=== PATIENT | female | born 1990 | race Caucasian/White ===

== ENCOUNTER 2019-10-31 12:36 | Emergency (ER) | payer OTHER ==
[~2019-10-31] VITALS: Ht 162.6 cm; Wt 49.4 kg
[2019-10-31 12:41] VITALS: BP 120/64
--- NOTE | 2019-10-31 13:05 | NUR ---
DR GRIFFITHS AT BEDSIDE FOR EVAL.
--- NOTE | 2019-10-31 13:48 | NUR ---
PT. VERBALIZED UNDERSTANDING OF AFTERCARE INSTRUCTIONS.Patient discharged to home in stable condition. Written and verbal after care instructions given. Patient verbalizes understanding of instruction.
== END 2019-10-31 13:49 | disposition home or self-care (01) ==
LOC: ER 12:36
DX: H00.033 Abscess of eyelid right eye, unspecified eyelid (principal)

== ENCOUNTER 2019-11-10 13:03 | Emergency (ER) | payer OTHER ==
[~2019-11-10] VITALS: Ht 162.6 cm; Wt 48.5 kg
--- NOTE | 2019-11-10 13:37 | NUR ---
DR GRIFFITHS AT BEDSIDE FOR EVAL.
[2019-11-10 13:53] LABS: BASOPHILS % (AUTO) 0.9 % (0.0-2.0); EOSINOPHILS % (AUTO) 0.7 % (0.0-6.0); HEMATOCRIT 38 % (33-45); LYMPHOCYTES # (AUTO) 1.4 /CMM (0.8-4.8); MEAN CORPUSCULAR HGB CONC 34 g/dl (31.0-36.0); MEAN CORPUSCULAR VOLUME 92 fL (82-100); MONOCYTES # (AUTO) 0.5 /CMM (0.1-1.30); MONOCYTES % (AUTO) 8.8 % (2.0-12.0); NEUTROPHILS # (AUTO) 3.4 /CMM (1.8-8.9); NEUTROPHILS % (AUTO) 63.6 % (43.0-81.0); PLATELET COUNT (AUTO) 257 /CMM (150-450); RED BLOOD CELL COUNT(AUTO) 4.14 MIL/uL (4.0-5.2); WHITE BLOOD COUNT (AUTO) 5.4 K/uL (4.3-11.0)
[2019-11-10 13:59] LABS: CALCIUM, SERUM 9.5 mg/dL (8.5-10.1); CREATININE 0.8 mg/dL (0.6-1.3); POTASSIUM 3.7 mmol/L (3.5-5.1)
[2019-11-10] MEDS ORDERED: MECLIZINE HCL 25 MG TABLET ONE (14:00)
[2019-11-10] MEDS: IV NS 0.9% 1,000 ML BAG IV ONE (14:04)
[2019-11-10] MEDS: MECLIZINE HCL 12.5 MG TABLET PO ONE (14:04)
--- NOTE | 2019-11-10 14:44 | NUR ---
RADIOLOGY AT BEDSIDE FOR CHEST XRAY.
--- NOTE | 2019-11-10 15:01 | NUR ---
Patient discharged to home in stable condition. Written and verbal after care instructions given. Patient verbalizes understanding of instruction.IV removed. Catheter intact and site benign. Pressure and 4x4 applied to site. No bleeding noted.
[2019-11-10 15:02] VITALS: BP 112/70
== END 2019-11-10 15:02 | disposition home or self-care (01) ==
LOC: ER 13:07
DX: R42 Dizziness and giddiness (principal)
CPT/HCPCS: 36415; 71045; 80048; 85025; 93005; 96360; 99285; J7030; J8597

== ENCOUNTER → 2021-02-16 | Emergency (ER) | payer OTHER ==
[~2021-02-16] VITALS: Ht 162.6 cm; Wt 56.7 kg
[~2021-02-16] MED LIST: IBUP-1955 PO; IV NS 0.9% 500 ML IV ONE; KETOROLAC TROMETHAMINE INJ 30 MG/ML VIAL IV ONE; MORPHINE SULFATE INJ 2 MG/ML DISP.SYRIN IV ONE; MORPHINE SULFATE INJ 2 MG/ML DISP.SYRIN ONE; ONDANSETRON HCL/PF - ER 4 MG/2 ML VIAL IV ONE; ONDANSETRON HCL/PF 4 MG/2 ML VIAL ONE
--- NOTE | 2021-02-16 17:02 | NUR ---
URINE SAMPLE OBTAINED AND SENT TO LAB
--- NOTE | 2021-02-16 17:05 | NUR ---
BIBS C/O INTERMITTENT RUQ PAIN RADIATING TO BACK X1 DAY. PAIN IS RATED 10/10 AND IS SHARP IN QUALITY. ADMITS NAUSEA, DENIES VOMITING. ADMITS FEVER AND DIAPHORESIS. HX KIDNEY STONES, GERD. A&OX4. PULSES 2+ BILATERALLY. BREATHING IS EVEN AND UNLABORED. SKIN IS WARM AND DRY. ABDOMEN IS NONTENDER TO TOUCH.
--- NOTE | 2021-02-16 17:27 | NUR ---
LABS OBTAINED, SALINE LOCK PLACED
[2021-02-16 17:37] LABS: BASOPHILS # (AUTO) 0.1 K/uL (0.0-0.2); BASOPHILS % (AUTO) 0.9 % (0.0-2.0); EOSINOPHILS % (AUTO) 1.6 % (0.0-6.0); HEMATOCRIT 37 % (33-45); HEMOGLOBIN 12.6 g/dL (11.5-14.8); LYMPHOCYTES # (AUTO) 1.7 K/uL (0.8-4.8); LYMPHOCYTES % (AUTO) 25.5 % (20.0-44.0); MEAN CORPUSCULAR HGB CONC 34 g/dl (31.0-36.0); MEAN CORPUSCULAR VOLUME 96 fL (82-100); MONOCYTES # (AUTO) 0.5 K/uL (0.1-1.30); MONOCYTES % (AUTO) 6.8 % (2.0-12.0); NEUTROPHILS # (AUTO) 4.4 K/uL (1.8-8.9); NEUTROPHILS % (AUTO) 65.2 % (43.0-81.0); PLATELET COUNT (AUTO) 322 K/uL (150-450); RED BLOOD CELL COUNT(AUTO) 3.85 MIL/uL (4.0-5.2); WHITE BLOOD COUNT (AUTO) 6.8 K/uL (4.3-11.0)
[2021-02-16 17:46] LABS: CALCIUM, SERUM 8.7 mg/dL (8.5-10.1); CREATININE 0.8 mg/dL (0.6-1.3); POTASSIUM 3.9 mmol/L (3.5-5.1)
[2021-02-16 17:46] LABS: BILIRUBIN,URINE NEGATIVE (NEGATIVE); COLOR,URINE YELLOW (YELLOW); LEUKOCYTE ESTERASE ,URINE NEGATIVE (NEGATIVE); NITRITE, URINE NEGATIVE (NEGATIVE); PH,URINE 7.5 (5.0-8.0); PROTEIN,URINE NEGATIVE (NEGATIVE); UGLUCOSE NEGATIVE (NEGATIVE); UROBILINOGEN,URINE 0.2 EU/dL (0.2)
--- NOTE | 2021-02-16 17:50 | NUR ---
IV FLUIDS RUNNING END TIME 1815.
[2021-02-16 17:52] LABS: ALBUMIN 3.8 g/dL (3.4-5.0); BILIRUBIN,DIRECT 0.1 mg/dL (0.0-0.2); BILIRUBIN,TOTAL 0.2 mg/dL (0.2-1.0); TOTAL PROTEIN, SERUM 6.5 g/dL (6.4-8.2)
[2021-02-16 18:05] LABS: BACTERIA,URINE None seen /HPF (None Seen); RBC,URINE 0-2 /HPF (0-2); URINE AMORPHOUS PHOSPHATES Moderate /HPF (None Seen); WBC,URINE 0-2 /HPF (0-3)
--- NOTE | 2021-02-16 18:20 | NUR ---
IV FLUIDS ARE FINISHED
--- NOTE | 2021-02-16 18:25 | NUR ---
METAL [employer]DEL [employer]KER AT BEDSIDE
[2021-02-16 19:32] VITALS: BP 108/74
--- NOTE | 2021-02-16 19:32 | NUR ---
IV removed. Catheter intact and site benign. Pressure and 4x4 applied to site. No bleeding noted.
--- NOTE | 2021-02-16 19:32 | NUR ---
Patient discharged to home in stable condition. Written and verbal after care instructions given. Patient verbalizes understanding of instruction.
== END | disposition home or self-care (01) ==
LOC: ER 16:30
DX: R10.11 Right upper quadrant pain (principal); E86.0 Dehydration; Z98.890 Other specified postprocedural states
CPT/HCPCS: 36415; 76705; 80048; 80076; 81001; 83690; 84702; 84703; 85025; 99284; J2405 ×2; J7040; J2270